=== PATIENT | male | born 1940 | race Caucasian/White ===

== ENCOUNTER 2021-06-03 19:20 | Inpatient (IN) | payer MEDICARE, OTHER ==
[~2021-06-03] VITALS: Ht 172.7 cm; Wt 70.8 kg
[2021-06-03 19:50] LABS: BASOPHILS # (AUTO) 0.1 K/uL (0.0-0.2); BASOPHILS % (AUTO) 0.4 % (0.0-2.0); EOSINOPHILS % (AUTO) 0.1 % (0.0-6.0); HEMATOCRIT 43 % (39-51); LYMPHOCYTES # (AUTO) 1.1 K/uL (0.8-4.8); LYMPHOCYTES % (AUTO) 6.2 % (20.0-44.0); MEAN CORPUSCULAR HGB CONC 32 g/dl (31.0-36.0); MEAN CORPUSCULAR VOLUME 102 fL (80-96); MONOCYTES # (AUTO) 0.7 K/uL (0.1-1.30); MONOCYTES % (AUTO) 4.2 % (2.0-12.0); NEUTROPHILS # (AUTO) 15.3 K/uL (1.8-8.9); NEUTROPHILS % (AUTO) 89.1 % (43.0-81.0); PLATELET COUNT (AUTO) 288 K/uL (150-450); RED BLOOD CELL COUNT(AUTO) 4.26 MIL/uL (4.5-6.0); WHITE BLOOD COUNT (AUTO) 17.2 K/uL (4.3-11.0)
[2021-06-03] MEDS ORDERED: IV NS 0.9% 1,000 ML IV ONE ×2 (20:00→22:30)
--- NOTE | 2021-06-03 20:00 | NUR ---
PATIENT BIBRA70 FROM SNF/ [facility], C/O LOW O2 SAT IN THE 80'S AND LOW BP 80/40. PATIENT A/OX2, NO SOB NOTED, RR EVEN. PATIENT CONNECTED TO PATIENT ADVOCATE AND POX. WILL CONTINUE TO MONITOR.
[2021-06-03 20:02] LABS: CALCIUM, SERUM 9.5 mg/dL (8.5-10.1); CARBON DIOXIDE 24 mmol/L (21-32); CHLORIDE 101 mmol/L (98-107); CREATININE 3.3 mg/dL (0.6-1.3); GLUCOSE 122 mg/dL (74-106); POTASSIUM 4.8 mmol/L (3.5-5.1); SODIUM SERUM 140 mmol/L (136-145); UREA NITROGEN, BLOOD 70 mg/dL (7-18)
--- NOTE | 2021-06-03 20:28 | NUR ---
Hannah barrett in [facility] - 06/03/21 at 2028 by TOMMY PER LAB, NO COVID SAMPLE YET
--- NOTE | 2021-06-03 20:45 | NUR ---
COVID SWAB DONE AND SENT TO LAB
--- NOTE | 2021-06-03 20:54 | NUR ---
urine collected and sent to lab
[2021-06-03] MEDS ORDERED: ONDANSETRON HCL/PF 4 MG/2 ML VIAL IVP PRN (21:00)
[2021-06-03] MEDS ORDERED: MORPHINE SULFATE INJ 2 MG/ML DISP.SYRIN IV PRN (21:00)
[2021-06-03] MEDS ORDERED: ACETAMINOPHEN 325 MG TABLET PO PRN (21:00)
[2021-06-03] MEDS ORDERED: VANCOMYCIN 1.5 GM in IV D5W 500 ML IV ONE (21:00)
[2021-06-03] MEDS ORDERED: hydrALAZINE HCL IV 20 MG VIAL IV PRN (21:00)
[2021-06-03] MEDS ORDERED: Z GUARD REMEDY 2 OZ OINT TP PRN (21:00)
[2021-06-03] MEDS ORDERED: LABETALOL 20 MG/4 ML VIAL IV PRN (21:00)
[2021-06-03 21:09] LABS: BILIRUBIN,URINE MODERATE (NEGATIVE); COLOR,URINE ORANGE (YELLOW); LEUKOCYTE ESTERASE ,URINE Negative (NEGATIVE); NITRITE, URINE Negative (NEGATIVE); PH,URINE 5.5 (5.0-8.0); PROTEIN,URINE 100 mg/dl (NEGATIVE); UGLUCOSE Negative (NEGATIVE)
[2021-06-03 21:43] LABS: CREATININE, URINE 235.7 MG/DL (30.0-125.0)
[2021-06-03 21:46] LABS: BACTERIA,URINE 1+ /HPF (None Seen); RBC,URINE 51-80 /HPF (0-2); SQUAMOUS EPITHELIAL CELL,UR Few /HPF (None Seen)
[2021-06-03] MEDS ORDERED: ALBU8.5H8 IH (21:47)
[2021-06-03 21:50] LABS: THYROID STIMULATING HORMONE 12.115 uIU/mL (0.358-3.74)
[2021-06-03] MEDS ORDERED: BENA40TA8 PO (21:50)
[2021-06-03] MEDS ORDERED: AMLO-213 PO (21:50)
[2021-06-03] MEDS ORDERED: LORA-259 PO (21:50)
[2021-06-03] MEDS ORDERED: CELE200C PO (21:50)
[2021-06-03] MEDS ORDERED: BENZ0.5T43 PO (21:50)
[2021-06-03] MEDS ORDERED: DONE5TAB7 PO (21:50)
[2021-06-03] MEDS: METOPROLOL TARTRATE 25 MG TABLET PO SCH (22:30)
[2021-06-03] MEDS ORDERED: LORAZEPAM 1 MG TABLET PO PRN (22:30)
[2021-06-03] MEDS ORDERED: ALBUTEROL SULFATE INH 18 GM HFA.AER.AD IH PRN (22:30)
--- NOTE | 2021-06-03 22:38 | NUR ---
FREDIS RN WILL CALL BACK
--- NOTE | 2021-06-03 22:43 | NUR ---
REPORT GIVEN TO YANG NULL
[2021-06-03] MEDS ORDERED: CEFEPIME 1 GM in IV D5W 50 ML IV ONE (23:00)
[2021-06-03] MEDS ORDERED: ALBUTEROL FS 2.5 MG/3 ML VIAL.NEB NEB PRN (23:00)
--- NOTE | 2021-06-03 23:05 | NUR ---
PT TRANSFERRED UNDER ACLS
--- NOTE | 2021-06-03 23:30 | NUR ---
RN NOTE RECEIVED AN 80 YEAR OLD MALE FROM ER. REPORT GIVEN BY YANG AQUINO. ARRIVED VIA GURNEY. PATIENT IS AWAKE, VERBALLY RESPONSIVE. AOX1. BREATHING EVEN AND UNLABORED. TOLERATING ROOM AIR WITH SATURATION OF 100 PERCENT. HOB ELEVATED 35 DEGREES. NO SOB NOTED. SKIN WARM AND DRY. NOTED WITH LEFT HAND 24G, RUNNING 1L, NS WIDE OPEN. NO INFILTRATION NOTED. PATIENT DENIES PAIN AT THIS TIME. KEPT CLEAN AND DRY. BED LOW, IN LOCKED POSITION. CALL LIGHT WITHIN REACH.
[2021-06-04] VITALS: BP 86/50
[2021-06-04] MEDS ORDERED: VANCOMYCIN 1 GM VIAL ONE (00:06)
[2021-06-04] MEDS: APIXABAN 5 MG TABLET PO SCH ×3 (00:14→16:35)
--- NOTE | 2021-06-04 00:20 | NUR ---
RN NOTE PATIENT SPITTING OUT MEDICATION, ELIQUIS. EXPLAINED TO PATIENT THE PURPOSE AND RISK OF NOT TAKING ELIQUIS 3X. PATIENT STATES "I DONT WANT TO TAKE THAT". EXPLAINED THREE TIMES. STILL REFUSING. CHARGE NURSE INFORMED. NO BLEEDING AT THIS TIME. CALL LIGHT WITHIN REACH.
[2021-06-04 00:26] LABS: BILIRUBIN,DIRECT 0.9 mg/dL (0.0-0.2); BILIRUBIN,TOTAL 1.8 mg/dL (0.2-1.0)
--- NOTE | 2021-06-04 00:30 | NUR ---
RN NOTE RECEIVED REPORT FROM LAB, KAREN, PATIENTS LACTIC ACID LEVEL 3.3. PATIENT CURRENTLY RUNNING NS BOLUS FROM ER AND VANCOMYCIN 1.5 GM. WILL INFORM MD. WILL CONTINUE TO MONITOR.
[2021-06-04] MEDS ORDERED: CEFEPIME 1 GM VIAL ONE (00:41)
[2021-06-04 00:46] LABS: ALANINE AMINOTRANSFERASE 101 U/L (12-78); ALBUMIN 2.6 g/dL (3.4-5.0); ALKALINE PHOSPHATASE 72 U/L (46-116); ASPARTATE AMINOTRANSFERASE 263 U/L (15-37); BILIRUBIN,TOTAL 1.7 mg/dL (0.2-1.0); CALCIUM, SERUM 8.3 mg/dL (8.5-10.1); CARBON DIOXIDE 22 mmol/L (21-32); CHLORIDE 104 mmol/L (98-107); CREATININE 3.3 mg/dL (0.6-1.3); GLUCOSE 129 mg/dL (74-106); POTASSIUM 5.3 mmol/L (3.5-5.1); SODIUM SERUM 141 mmol/L (136-145); TOTAL PROTEIN, SERUM 6.3 g/dL (6.4-8.2); UREA NITROGEN, BLOOD 74 mg/dL (7-18)
[2021-06-04] MEDS: CEFEPIME 1 GM in IV D5W 50 ML IV SCH (01:51)
[2021-06-04] MEDS: IV NS 0.9% 1,000 ML IV PRN ×2 (02:40→23:08)
[2021-06-04 04:00] VITALS: BP 99/58
[2021-06-04 04:03] LABS: BASOPHILS # (AUTO) 0.1 K/uL (0.0-0.2); BASOPHILS % (AUTO) 0.4 % (0.0-2.0); HEMATOCRIT 36 % (39-51); LYMPHOCYTES # (AUTO) 0.6 K/uL (0.8-4.8); LYMPHOCYTES % (AUTO) 3.3 % (20.0-44.0); MEAN CORPUSCULAR HGB CONC 33 g/dl (31.0-36.0); MEAN CORPUSCULAR VOLUME 101 fL (80-96); MONOCYTES # (AUTO) 0.8 K/uL (0.1-1.30); MONOCYTES % (AUTO) 4.4 % (2.0-12.0); NEUTROPHILS # (AUTO) 16.4 K/uL (1.8-8.9); NEUTROPHILS % (AUTO) 91.9 % (43.0-81.0); PLATELET COUNT (AUTO) 229 K/uL (150-450); RED BLOOD CELL COUNT(AUTO) 3.59 MIL/uL (4.5-6.0); WHITE BLOOD COUNT (AUTO) 17.9 K/uL (4.3-11.0)
[2021-06-04 04:19] LABS: ALANINE AMINOTRANSFERASE 89 U/L (12-78); ALBUMIN 2.3 g/dL (3.4-5.0); ALKALINE PHOSPHATASE 67 U/L (46-116); ASPARTATE AMINOTRANSFERASE 215 U/L (15-37); BILIRUBIN,TOTAL 1.5 mg/dL (0.2-1.0); CALCIUM, SERUM 7.9 mg/dL (8.5-10.1); CARBON DIOXIDE 23 mmol/L (21-32); CHLORIDE 105 mmol/L (98-107); CREATININE 3.1 mg/dL (0.6-1.3); GLUCOSE 178 mg/dL (74-106); MAGNESIUM 2.1 mg/dL (1.8-2.4); PHOSPHORUS 4.9 mg/dL (2.5-4.9); POTASSIUM 5.2 mmol/L (3.5-5.1); SODIUM SERUM 140 mmol/L (136-145); TOTAL PROTEIN, SERUM 5.8 g/dL (6.4-8.2); UREA NITROGEN, BLOOD 72 mg/dL (7-18)
[2021-06-04 06:35] LABS: BAND % (MANUAL) 3 % (0.0-5.0); LYMPHOCYTES % (MANUAL) 4 % (16-48); MONOCYTES % (MANUAL) 4 % (0-11.0); NEUTROPHILS % (MANUAL) 89 (42-76)
--- NOTE | 2021-06-04 07:30 | NUR ---
RN OPENING NOTE RECEIVED PATIENT ASLEEP IN BED, EASY TO AROUSE. PATIENT IS ALERT AND ORIENTED X 1, WITH CONFUSION. NO SOB. BREATHING IS EVEN AND UNLABORED. PT WITH O2 SUPPLEMENTATION 2L VIA NASAL CANNULA SATURATING AT 98%. IV ACCESS LHAND#24 AND LAC#20 RUNNING AT 75MLS/HR. SAFETY MEASURES IN PLACE WITH BED LOCKED AT LOWEST POSITION AND SIDE RAILS UP X2. WILL CONTINUE TO MONITOR PATIENT FOR SOB, DECREASE IN BP OR OXYGENATION.
--- NOTE | 2021-06-04 07:45 | NUR ---
WOUND CARE CONSULT: REVIEWED CHART, NURSING DOCUMENTATION AND PHOTOS WHICH INDICATE WOUNDS PRESENT ON ADMISSION. DR IVY NOTIFIED OF SURGICAL CONSULT REQUEST. RECOMMENDATIONS MADE FOR SKIN PROTECTION. DISCUSSED WITH NURSING STAFF. MD IN AGREEMENT WITH PLAN OF CARE.
[2021-06-04 08:00] VITALS: BP 111/52
[2021-06-04] MEDS: DONEPEZIL 5 MG TABLET PO SCH (08:36)
[2021-06-04] MEDS: BENZTROPINE MESYLATE (1 MG) 1 MG TABLET PO SCH (08:36)
[2021-06-04] MEDS: METOPROLOL TARTRATE 25 MG TABLET PO SCH ×2 (08:43→16:35)
[2021-06-04] MEDS: AMLODIPINE BESYLATE 10 MG TABLET PO SCH (08:43)
[2021-06-04] MEDS ORDERED: IV NS 0.9% 1,000 ML IV ONE (09:00)
--- NOTE | 2021-06-04 11:01 | NUR ---
RN NOTE MADE DR. FARLEY AWARE OF PT REFUSING PO MEDS, INCLUDING ELIQUIS. PER DR. FARLEY, OK TO HOLD. ORDERS READ BACK AND CARRIED OUT.
[2021-06-04 12:00] VITALS: BP 111/52
[2021-06-04 16:00] VITALS: BP 111/52
--- NOTE | 2021-06-04 18:47 | NUR ---
RN CLOSING NOTE PT IN BED, RESTING COMFORTABLY. NO S/SX OF DISTRESS NOTED. NO SOB. BREATHING IS EVEN AND UNLABORED . PT WITH 02 SUPPLEMENTATION VIA NC SP02 SATURATING AT 98%. PT CONTINUED TO REFUSE MEDS MADE AWARE. NO SIGNIFICANT CHANGE THROUGHOUT SHIFT. SAFETY MEASURES MAINTAINED. WILL ENDORSE CONTINUITY OF CARE TO ONCOMING SHIFT.
--- NOTE | 2021-06-04 19:30 | NUR ---
CONTINUITY OF CARE Patient in bed, A/O to self only, confused. Removed NC tubing by himself, Oxygen sat 94% on room air, no c/o sob. IVF infusing. Incontinent, had BM. Turned and repositioned. Fall precaution maintained. Covid PCR test pending result.
--- NOTE | 2021-06-04 21:40 | NUR ---
INCOMPLETE VS TAKEN AT 1999 Patient refused BP check, declined education, patient is confused.
[2021-06-05] MEDS: CEFEPIME 1 GM in IV D5W 50 ML IV SCH ×2 (01:01→22:01)
[2021-06-05 01:11] VITALS: BP 119/64
[2021-06-05 05:21] VITALS: BP 125/81
--- NOTE | 2021-06-05 06:10 | NUR ---
END OF SHIFT REPORT Patient is A/O x1 to self only, confused. Afib controlled in the Tele monitor. Removed NC by himself, Oxygen sat 94% on RA. Incontinent, had BM this shift, voided urine. Turned and repositioned. Applied new Mepilex foam to nola hip. IVF infusing. on IV antibiotic. NPO awaiting swallow eval. Fall precaution maintained. PCR covid test pending result. Will endorse to oncoming RN.
--- NOTE | 2021-06-05 07:25 | NUR ---
RN OPENING NOTE PATIENT RECEIVED AWAKE IN BED, VERBALLY RESPONSIVE. A/O X4. LFA MED LOCK IN PLACE AND PATENT, CONTINUES ON FLUID NS @75 CC/HR RUNNING WELL. PT NOT IN DISTRESS NO SOB NOTED WITH O2 SAT OF 95 IN RA. SAFETY MEASURES FOLLOWED. WILL CONTINUE TO MONITOR.
[2021-06-05 08:00] VITALS: BP 95/45
[2021-06-05] MEDS: METOPROLOL TARTRATE 25 MG TABLET PO SCH ×3 (09:00→16:51)
[2021-06-05] MEDS: AMLODIPINE BESYLATE 10 MG TABLET PO SCH (09:00)
[2021-06-05] MEDS: BENZTROPINE MESYLATE (1 MG) 1 MG TABLET PO SCH (10:25)
[2021-06-05] MEDS: DONEPEZIL 5 MG TABLET PO SCH (10:25)
[2021-06-05] MEDS: APIXABAN 5 MG TABLET PO SCH ×2 (10:26→16:54)
[2021-06-05 12:00] VITALS: BP 108/61
[2021-06-05 16:00] VITALS: BP 105/64
[2021-06-05] MEDS: IV NS 0.9% 1,000 ML IV PRN (17:09)
--- NOTE | 2021-06-05 19:44 | NUR ---
RN OPENING NOTES RECEIVED REPORT OF PATIENT FROM DAY SHIFT NURSE, PATIENT IS A/O X1. PATIENT IS RESTLESS AND AGITATED. PATIENT PULLED ON IV ACCESS, NEW IV ACCESS PUT IN PLACE IN LEFT AC G#20 RUNNING WITH NS AT 75ML/HR. PATIENT WAS PLACED UNDER SOFT BILATERAL WRIST RESTRAINTS. NO SINGS IF CIRCULATORY COMPROMISE. PATIENT IS CURRENTLY ON ROOM AIR, LATEST O2 SAT WAS 98%. PATIENT WAS REPOSITIONED FOR COMFORT MEASURES. ALL SAFETY MEASURES PUT IN PLACE. BED IS AT LOWEST POSITION WITH WHEELS LOCKED IN PLACE, CALL LIGHT IS WITHIN REACH. WILL CONTINUE TO MONITOR FOR ANY CHANGES.
[2021-06-05 20:00] VITALS: BP 131/66
--- NOTE | 2021-06-05 20:00 | NUR ---
RN CLOSING NOTE PATIENT SEEN AWAKE IN BED, VERBALLY RESPONSIVE. A/O X1. PT REMOVED LFA MED LOCK. B2B SALES PROFESSIONAL JACKELYN Condon MADE AWARE, WITH T.O. FOR BILATERAL RESTRAINTS AND MIDLINE INSERTION.PT NOT IN DISTRESS NO SOB NOTED WITH O2 SAT OF 95 IN RA. SAFETY MEASURES FOLLOWED. WILL CONTINUE TO MONITOR. DUE MEDICATIONS GIVEN. MORNING CARE DONE.
[2021-06-06] VITALS: BP 129/56
[2021-06-06 04:00] VITALS: BP 132/53
[2021-06-06 07:39] LABS: BASOPHILS % (AUTO) 0.3 % (0.0-2.0); HEMATOCRIT 34 % (39-51); LYMPHOCYTES # (AUTO) 0.7 K/uL (0.8-4.8); LYMPHOCYTES % (AUTO) 8.8 % (20.0-44.0); MEAN CORPUSCULAR HGB CONC 33 g/dl (31.0-36.0); MEAN CORPUSCULAR VOLUME 105 fL (80-96); MONOCYTES # (AUTO) 0.6 K/uL (0.1-1.30); MONOCYTES % (AUTO) 7.7 % (2.0-12.0); NEUTROPHILS # (AUTO) 6.4 K/uL (1.8-8.9); NEUTROPHILS % (AUTO) 82.2 % (43.0-81.0); PLATELET COUNT (AUTO) 242 K/uL (150-450); WHITE BLOOD COUNT (AUTO) 7.8 K/uL (4.3-11.0)
[2021-06-06 08:00] VITALS: BP 154/83
--- NOTE | 2021-06-06 08:00 | NUR ---
RN Note: Pt received alert awake oriented X1. On RA, no breathing distress noted. No s/s of pain & discomfort noted at this time. Safety measures observed. IV site C/I/D, continue with IV fluids as ordered, tolerating well. Bilateral soft restraints ON. Attempt to release restraints, noted still trying to pull out treatment lines. Continue to asses closely. All needs attended. Continue to monitor.
[2021-06-06 08:06] LABS: ALANINE AMINOTRANSFERASE 87 U/L (12-78); ALBUMIN 2.1 g/dL (3.4-5.0); ALKALINE PHOSPHATASE 57 U/L (46-116); ASPARTATE AMINOTRANSFERASE 155 U/L (15-37); CALCIUM, SERUM 7.7 mg/dL (8.5-10.1); CARBON DIOXIDE 16 mmol/L (21-32); CHLORIDE 115 mmol/L (98-107); CREATININE 1.4 mg/dL (0.6-1.3); GLUCOSE 69 mg/dL (74-106); PHOSPHORUS 2.6 mg/dL (2.5-4.9); POTASSIUM 3.5 mmol/L (3.5-5.1); SODIUM SERUM 147 mmol/L (136-145); TOTAL PROTEIN, SERUM 5.4 g/dL (6.4-8.2); UREA NITROGEN, BLOOD 53 mg/dL (7-18)
[2021-06-06] MEDS: BENZTROPINE MESYLATE (1 MG) 1 MG TABLET PO SCH (08:58)
[2021-06-06] MEDS: AMLODIPINE BESYLATE 10 MG TABLET PO SCH (08:58)
[2021-06-06] MEDS: APIXABAN 5 MG TABLET PO SCH ×2 (08:59→17:59)
[2021-06-06] MEDS: METOPROLOL TARTRATE 25 MG TABLET PO SCH ×2 (08:59→18:00)
[2021-06-06] MEDS: DONEPEZIL 5 MG TABLET PO SCH (08:59)
[2021-06-06] MEDS: IV NS 0.9% 1,000 ML IV PRN (09:16)
[2021-06-06] MEDS: IV 1/2NS 1000 ML 1,000 ML IV PRN ×2 (10:06→23:17)
--- NOTE | 2021-06-06 11:30 | NUR ---
RN note: Informed Brina CYBER SECURITY SPECIALIST regarding poor PO intake, episodes of spitting out food & medication. Continue on bilateral soft restraints. Attempts to pull tubings. Plan for Psych consult.
[2021-06-06 12:00] VITALS: BP 139/67
[2021-06-06] MEDS ORDERED: QUETIAPINE FUMARATE 25 MG TABLET PO SCH (13:00)
--- NOTE | 2021-06-06 13:04 | NUR ---
RN Note: Received call from Dr. Maier, received new orders to discontinue Seroquel & start new Risperidone M 0.5mg PO TID. Continue bilateral soft wrist restraints at this time. Orders noted & carried out.
[2021-06-06] MEDS: risperiDONE-M 0.5 MG TAB.RAPDIS PO SCH ×2 (14:27→18:00)
[2021-06-06 16:00] VITALS: BP 143/74
--- NOTE | 2021-06-06 18:00 | NUR ---
RN Note: No significant changes noted during shift. Pt took Risperdol PO 0.5mg as ordered. No attempts to pull out lines while off restraints. D/C'd bilateral soft wrist restraints. Continue to monitor closely. Report given to PM shift RN for continuity of care.
[2021-06-06 20:00] VITALS: BP 122/68
--- NOTE | 2021-06-06 21:30 | NUR ---
TOOL DESIGNER APPRENTICE PT ATTEMPTED TO GET OUT OF BED STATING HE NEEDS TO GO HOME. UNABLE TO REORIENT PT. BSWR PLACED FOR PT SAFETY.
[2021-06-06] MEDS: CEFEPIME 1 GM in IV D5W 50 ML IV SCH (23:10)
[2021-06-07 04:00] VITALS: BP 143/65
[2021-06-07 08:00] VITALS: BP 100/70
[2021-06-07 08:28] LABS: BASOPHILS % (AUTO) 0.4 % (0.0-2.0); EOSINOPHILS % (AUTO) 1.4 % (0.0-6.0); HEMATOCRIT 33 % (39-51); LYMPHOCYTES # (AUTO) 0.8 K/uL (0.8-4.8); MEAN CORPUSCULAR HGB CONC 33 g/dl (31.0-36.0); MEAN CORPUSCULAR VOLUME 103 fL (80-96); MONOCYTES # (AUTO) 0.5 K/uL (0.1-1.30); MONOCYTES % (AUTO) 7.9 % (2.0-12.0); NEUTROPHILS # (AUTO) 5.5 K/uL (1.8-8.9); NEUTROPHILS % (AUTO) 79.3 % (43.0-81.0); PLATELET COUNT (AUTO) 263 K/uL (150-450); RED BLOOD CELL COUNT(AUTO) 3.24 MIL/uL (4.5-6.0); WHITE BLOOD COUNT (AUTO) 6.9 K/uL (4.3-11.0)
[2021-06-07] MEDS: APIXABAN 5 MG TABLET PO SCH ×2 (08:43→16:39)
[2021-06-07] MEDS: BENZTROPINE MESYLATE (1 MG) 1 MG TABLET PO SCH (08:43)
[2021-06-07] MEDS: DONEPEZIL 5 MG TABLET PO SCH (08:43)
[2021-06-07] MEDS: risperiDONE-M 0.5 MG TAB.RAPDIS PO SCH ×3 (08:43→16:35)
[2021-06-07 08:49] LABS: CALCIUM, SERUM 7.6 mg/dL (8.5-10.1); CREATININE 1.2 mg/dL (0.6-1.3); MAGNESIUM 1.6 mg/dL (1.8-2.4); POTASSIUM 3.6 mmol/L (3.5-5.1)
[2021-06-07] MEDS: METOPROLOL TARTRATE 25 MG TABLET PO SCH ×2 (08:49→16:34)
[2021-06-07] MEDS: AMLODIPINE BESYLATE 10 MG TABLET PO SCH (08:49)
[2021-06-07] MEDS: Magnesium 1GM/D5W 100ML PREMIX 100 ML IV SCH ×2 (10:23→11:25)
[2021-06-07] MEDS: IV D5W 1,000 ML IV PRN (10:29)
[2021-06-07] MEDS ORDERED: POTASSIUM PHOSPHATE MM 7.5 MMOL in IV NS 0.9% 100 ML IV SCH (11:00)
[2021-06-07 16:00] VITALS: BP 133/63
--- NOTE | 2021-06-07 18:46 | NUR ---
RN CLOSING NOTE PT IN BED RESTING COMFORTABLY. NO SOB OR ANY S/SX OF DISTRESS NOTED. NO SIGNIFICANT CHANGES NOTED DURING SHIFT. RESTRAINTS D/C'D WITH NO ATTEMPT TO PULL OUT LINES AT THE TIME. ALL SAFETY MEASURES IMPLEMENTED. CALL LIGHT WITHIN REACH. BED IN LOWEST POSITION WITH SIDERAILS UP X 2. WILL REPORT TO CHANGE MANAGEMENT MANAGER RN FOR CONTINUITY OF CARE.
--- NOTE | 2021-06-07 19:30 | NUR ---
MS RN: RECEIVED PT. ALERT AND AWAKE. ABLE TO FOLLOW SIMPLE COMMANDS. ON ROOM AIR WT NO ACUTE DISTRESS. NO C/O PAIN OR EVIDENCE OF DISCOMFORT. ON D5W AT 75ML/HR WT NO S/S OF IV INFILTRATION. STILL OF BILAT. WRIST RESTRAINTS WT NO EPISODE OF TRYING TO PULL TUBINGS. REPOSITIONED FOR COMFORT. GOOD SKIN CARE RENDERED. HOB AT 35 DEGREES. BED IN LOWEST POSITION AND LOCKED. BED ALARM ON. SIDE RAILS UPX 2. CALL LIGHT WITHIN REACH. WILL CONTINUE TO MONITOR.
[2021-06-07 20:00] VITALS: BP 118/61
--- NOTE | 2021-06-07 22:03 | NUR ---
MS RN: ENDORSED TO YANG HSIEH IN STABLE CONDITION. PICTURES TAKEN EXCEPT LEFT HIP.
--- NOTE | 2021-06-07 22:03 | NUR ---
RN NOTE REPORT RECEIVED BY YANG WILLIAM FOR REESE.
[2021-06-07] MEDS: CEFEPIME 1 GM in IV D5W 50 ML IV SCH (22:59)
--- NOTE | 2021-06-07 23:00 | NUR ---
RN NOTE PT RESTING IN BED COMFORTABLY. PT IS ON ROOM AIR SHOWING NO S/S OF RESP DISTRESS/SOB. D5W RUNNING AT 75ML/HR. PT TOLERATING WELL. PICTURE TAKEN OF LEFT HIP WOUND. COMPARED TO PREVIOUS PICTURES IN CHART, THERE IS NO MORE REDNESS ON LEFT HIP. PICTURE PLACED IN CHART. WILL CONTINUE TO MONITOR AND ASSESS FOR ANY CHANGES DURING SHIFT.
[2021-06-08] MEDS: IV D5W 1,000 ML IV PRN ×2 (02:13→16:32)
[2021-06-08 04:00] VITALS: BP 128/62
--- NOTE | 2021-06-08 07:01 | NUR ---
RN NOTE NO CHANGES IN PT CONDITION DURING SHIFT. PT IS ON ROOM AIR SHOWING NO S/S OF RESP DISTRESS/SOB. BREATHING EVEN AND UNLABORED. PT IS ALERT AND ORIENTED X1. IV ACCESS NOTED ON LEFT UPPER ARM ML #18 AND LEFT AC #20. D5W RUNNING AT 75 ML/HR. PT TOLERATING WELL. ALL DUE MEDS GIVEN ORDERED. PT KEPT CLEAN AND COMFORTABLE. ALL SAFETY MEASURES IMPLEMENTED. WILL ENDORSE TO MORNING SHIFT RN FOR REESE.
--- NOTE | 2021-06-08 07:59 | NUR ---
RN OPENING NOTES: RECEIVED PT. AWAKE, ALERT/ORIENTED X 1 ON ROOM AIR WITH NO ACUTE DISTRESS. DENIES ANY PAIN/DISCOMFORT. ON D5W AT 75ML/HR WT NO S/S OF IV INFILTRATION. REMAINS TO BE OFF BILATERAL WRIST RESTRAINTS WITH NO EPISODE OF TRYING TO PULL TUBINGS. HOB AT 35 DEGREES. BED IN LOWEST POSITION AND LOCKED. BED ALARM ON. SIDE RAILS UPX 2. CALL LIGHT WITHIN REACH. WILL CONTINUE TO MONITOR.
[2021-06-08 08:51] VITALS: BP_SYST 137; BP_SYST 142; BP_DIAS 69; BP_DIAS 73
[2021-06-08] MEDS: AMLODIPINE BESYLATE 10 MG TABLET PO SCH (09:04)
[2021-06-08] MEDS: METOPROLOL TARTRATE 25 MG TABLET PO SCH ×2 (09:04→17:05)
[2021-06-08] MEDS: risperiDONE-M 0.5 MG TAB.RAPDIS PO SCH ×3 (09:05→17:05)
[2021-06-08] MEDS: DONEPEZIL 5 MG TABLET PO SCH (09:05)
[2021-06-08] MEDS: APIXABAN 5 MG TABLET PO SCH ×2 (09:05→17:06)
[2021-06-08] MEDS: BENZTROPINE MESYLATE (1 MG) 1 MG TABLET PO SCH (09:05)
[2021-06-08] MEDS: ENSURE ENLIVE 237 ML LIQUID (VANILLA) PO SCH ×3 (09:45→17:06)
--- NOTE | 2021-06-08 12:00 | NUR ---
RN NOTE PT IS NOT TOLERATING PO INTAKE, TRYING TO FEED HIM BUT HE IS SPITTING OUT THE FOOD WILL CONTINUE TO MONITOR AND TRY AGAIN LATER,
[2021-06-08 16:00] VITALS: BP 120/74
--- NOTE | 2021-06-08 18:30 | NUR ---
RN CLOSING NOTES PT REMAINS IN BED RESTING COMFORTABLY. NO SOB OR ANY S/SX OF DISTRESS NOTED AT THIS TIME. NO SIGNIFICANT CHANGES NOTED DURING SHIFT. RESTRAINTS D/C'D WITH NO ATTEMPT TO PULL OUT LINES AT THE TIME. PT CONTINUES TO HAVE POOR PO INTAKE. IV MIDLINE SENAIT RUNNING WITH D5W @ 75ML/HR. ALL SAFETY MEASURES IMPLEMENTED. CALL LIGHT WITHIN REACH. BED IN LOWEST POSITION WITH SIDERAILS UP X 2. WILL REPORT TO CLINICAL INFORMATICS SPECIALIST RN FOR CONTINUITY OF CARE.
--- NOTE | 2021-06-08 19:44 | NUR ---
RN NOTE RECEIVED PATIENT IN BED, SLEEPINE, AROUSABLE TO NAME AND TOUCH. AOX1. BREATHING EVEN AND UNLABORED. TOLERATING ROOM AIR. NO SOB NOTED. HOB ELEVATED 30 DEGREES. DENIES PAIN AT THIS TIME. NOTED WITH LEFT UPPER ARM MIDLINE AND LEFT AC PERIPHERAL IV 20 G. RUNNING D5W AT 75 ML/HR. NO INFILTRATION NOTED. NO BLEEDING NOTED. BED LOW, IN LOCKED POSITION. CALL LIGHT WITHIN REACH.
[2021-06-08 20:00] VITALS: BP 138/86
--- NOTE | 2021-06-08 23:30 | NUR ---
RN NOTE PATIENT NOTED WITH PERIPHERAL IV PULLED OUT. IV 20G INTACT. NO BLEEDING NOTED. PATIENT IS HARD STICK, WILL ATTEMPT TO REINSERT. Addendum: 06/09/21 at 0002 by PORTER PACHECO RN ADENDUM: PATIENT PULLED OUT LEFT UPPER ARM MIDLINE. CATHETER INTACT. PRESSURE APPLIED ON SITE. NO SIGNIFICANT BLEEDING NOTED. WILL CONTINUE TO MONITOR.
[2021-06-09] MEDS: CEFEPIME 1 GM in IV D5W 50 ML IV SCH (00:03)
--- NOTE | 2021-06-09 00:15 | NUR ---
RN NOTE REINSERTED PERIPHERAL IV 22G ON LEFT WRIST. PATENT WITH GOOD BLOOD RETURN. ONGOIGN IVF D5W AT 75 CC/HR. WILL CONTINUE TO MONITOR.
[2021-06-09 04:00] VITALS: BP 125/62
[2021-06-09] MEDS: IV D5W 1,000 ML IV PRN (05:09)
--- NOTE | 2021-06-09 07:35 | NUR ---
MS RN NOTE PATIENT IN BED, ON RA, NO SOB NOTED AT THIS TIME, WITH SOFT RESTRAIN STILL AT RISK, WILL MONITOR CLOSELY TO REMOVE ALL LINES, LT WRIST HL INTACT ,ON IVF ORDERED, BED IN LOWEST AND LOCKED POSITION
[2021-06-09] MEDS: AMLODIPINE BESYLATE 10 MG TABLET PO SCH (08:36)
[2021-06-09] MEDS: DONEPEZIL 5 MG TABLET PO SCH (08:37)
[2021-06-09] MEDS: BENZTROPINE MESYLATE (1 MG) 1 MG TABLET PO SCH (08:37)
[2021-06-09] MEDS: risperiDONE-M 0.5 MG TAB.RAPDIS PO SCH ×3 (08:37→16:18)
[2021-06-09] MEDS: METOPROLOL TARTRATE 25 MG TABLET PO SCH ×2 (08:37→16:17)
[2021-06-09] MEDS: APIXABAN 5 MG TABLET PO SCH ×2 (08:37→16:17)
[2021-06-09] MEDS: ENSURE ENLIVE 237 ML LIQUID (VANILLA) PO SCH ×3 (08:42→16:18)
[2021-06-09] MEDS ORDERED: Magnesium 1GM/D5W 100ML PREMIX 100 ML IV SCH (10:00)
--- NOTE | 2021-06-09 10:11 | NUR ---
ms rn note st at bedside ok to have puree diet and mid line nurse at bedside inserting mid line
--- NOTE | 2021-06-09 11:00 | NUR ---
m rn note picc nurse at bedside rt upper arm picc line inserted
[2021-06-09 12:00] VITALS: BP 135/70
[2021-06-09 12:03] LABS: CALCIUM, SERUM 6.8 mg/dL (8.5-10.1); POTASSIUM 3.1 mmol/L (3.5-5.1)
--- NOTE | 2021-06-09 12:59 | NUR ---
ms vega note more calm at this time ,restrain is removed will monitor Addendum: 06/09/21 at 1300 by JEROD BRENNAN RN st at bedside spit out food but still able to eat some food , will monitor
[2021-06-09] MEDS ORDERED: POTASSIUM CHLORIDE 20 MEQ TAB.PRT.SR PO ONE (13:00)
[2021-06-09] MEDS: Magnesium 1GM/D5W 100ML PREMIX 100 ML IV SCH ×3 (14:36→16:34)
--- NOTE | 2021-06-09 15:39 | NUR ---
ms rn note report given to shira vega per dr linda atkisn to leave picc line
--- NOTE | 2021-06-09 15:54 | NUR ---
ms rn note spoke with notified that patient will go to snf
[2021-06-09 16:11] VITALS: BP 124/70
[2021-06-09 16:17] VITALS: BP 124/81
--- NOTE | 2021-06-09 16:46 | NUR ---
ms rn note noted patient did not urinate since morning called to dr Lamont atkins to place in and out cath ,order carried out
--- NOTE | 2021-06-09 16:50 | NUR ---
ms rn note straight cath done 500 ml of urine noted keep clean dry , all needs attended
--- NOTE | 2021-06-09 18:03 | NUR ---
ms rn note ambulance arrived, report given, hl on rt wrist removed,no bleeding noted, rt upper arm picc line in paced and flushed well, no belonging at discharge noted ,no sob no c\o any discomfort upon discharge, taken to shelter with stable condition Addendum: 06/09/21 at 1816 by JEROD BRENNAN RN taken by ambulance with stable condition , all discharge instruction given to ambulance personal
== END 2021-06-09 18:12 | DRG 871 ==
LOC: ER 19:26 → TELE1 22:35 → MEDSG1 06-06 17:52
PROVIDERS: ADMIT Internal Medicine
PROC: 05HC33Z Insertion of Infusion Device into Left Basilic Vein, Percutaneous Approach (ICD-10-PCS; principal; 2021-06-05)
PROC: 05HB33Z Insertion of Infusion Device into Right Basilic Vein, Percutaneous Approach (ICD-10-PCS; 2021-06-09)
DX: A41.9 Sepsis, unspecified organism (principal); N17.0 Acute kidney failure with tubular necrosis; G93.41 Metabolic encephalopathy; R65.21 Severe sepsis with septic shock; G92.8 Other toxic encephalopathy; I21.A1 Myocardial infarction type 2; J69.0 Pneumonitis due to inhalation of food and vomit; J15.9 Unspecified bacterial pneumonia; N39.0 Urinary tract infection, site not specified; J44.0 Chronic obstructive pulmonary disease with (acute) lower respiratory infection; E87.2 Acidosis; E87.1 Hypo-osmolality and hyponatremia; E87.0 Hyperosmolality and hypernatremia; F05 Delirium due to known physiological condition; I10 Essential (primary) hypertension; F03.90 Unspecified dementia, unspecified severity, without behavioral disturbance, psychotic disturbance, mood disturbance, and anxiety; Z20.822 Contact with and (suspected) exposure to COVID-19; K21.9 Gastro-esophageal reflux disease without esophagitis; F32.A Depression, unspecified; I48.91 Unspecified atrial fibrillation; R94.6 Abnormal results of thyroid function studies; B96.89 Other specified bacterial agents as the cause of diseases classified elsewhere; I12.9 Hypertensive chronic kidney disease with stage 1 through stage 4 chronic kidney disease, or unspecified chronic kidney disease; N18.9 Chronic kidney disease, unspecified; R74.01 Elevation of levels of liver transaminase levels; E87.5 Hyperkalemia; S91.001A Unspecified open wound, right ankle, initial encounter; X58.XXXA Exposure to other specified factors, initial encounter; Y92.9 Unspecified place or not applicable; M62.562 Muscle wasting and atrophy, not elsewhere classified, left lower leg; M62.561 Muscle wasting and atrophy, not elsewhere classified, right lower leg; L89.226 Pressure-induced deep tissue damage of left hip; L89.216 Pressure-induced deep tissue damage of right hip; F25.0 Schizoaffective disorder, bipolar type; E83.42 Hypomagnesemia; E83.39 Other disorders of phosphorus metabolism; R09.02 Hypoxemia
CPT/HCPCS: 36415; 71045-TC; 76700-TC; 80048-TC; 80053-TC; 81001; 82247-TC; 82248-TC; 82570-TC; 83605-TC; 83735-TC; 84100-TC; 84300-TC; 84439-TC; 84443-TC; 84481; 84484-TC; 85025-TC; 87040-TC; 87081-TC; 87086-TC; 92526; 92611-TC; 93307-TC; 93970-TC; C9803; G0378; J0692; J2270; J3370; J3475; J3490; J7030; J7050; J7060; J7070; U0003

== ENCOUNTER 2021-06-15 13:48 | Inpatient (IN) | payer MEDICARE, OTHER ==
[~2021-06-15] VITALS: Ht 177.8 cm; Wt 70.8 kg
[~2021-06-15 13:48] MED LIST: ALBU8.5H8 IH; AMLO-213 PO; BENA40TA8 PO; BENZ0.5T43 PO; CELE200C PO; DONE5TAB7 PO; LORA-259 PO
--- NOTE | 2021-06-15 14:01 | NUR ---
BLOOD SUGAR 86, MD AWARE
--- NOTE | 2021-06-15 14:05 | NUR ---
The patient is [facility] for poor PO intake and possible peg placement. The patient is alert and oriented to his name, verbally responsive. Denies pain. In room air and denies SOB. Respiration regular and unlabored. Attached to to the monitor. Warm blanket provided for comfort. Will continue to monitor the patient.
[2021-06-15] MEDS ORDERED: LIDOCAINE 2% JEL UROJET 10 ML MM ONE ×2 (14:30→14:40)
--- NOTE | 2021-06-15 14:31 | NUR ---
MOVE SHEET SUBMITTED
[2021-06-15 14:36] LABS: BASOPHILS # (AUTO) 0.1 K/uL (0.0-0.2); BASOPHILS % (AUTO) 0.8 % (0.0-2.0); EOSINOPHILS % (AUTO) 1.3 % (0.0-6.0); HEMATOCRIT 34 % (39-51); HEMOGLOBIN 11.2 g/dL (13.5-17.5); LYMPHOCYTES % (AUTO) 13.8 % (20.0-44.0); MEAN CORPUSCULAR HGB CONC 33 g/dl (31.0-36.0); MEAN CORPUSCULAR VOLUME 101 fL (80-96); MONOCYTES # (AUTO) 0.5 K/uL (0.1-1.30); MONOCYTES % (AUTO) 6.5 % (2.0-12.0); NEUTROPHILS # (AUTO) 5.9 K/uL (1.8-8.9); NEUTROPHILS % (AUTO) 77.6 % (43.0-81.0); PLATELET COUNT (AUTO) 254 K/uL (150-450); RED BLOOD CELL COUNT(AUTO) 3.32 MIL/uL (4.5-6.0); WHITE BLOOD COUNT (AUTO) 7.6 K/uL (4.3-11.0)
[2021-06-15 15:03] LABS: BILIRUBIN,URINE MODERATE (NEGATIVE); COLOR,URINE DARK YELLOW (YELLOW); LEUKOCYTE ESTERASE ,URINE NEGATIVE (NEGATIVE); NITRITE, URINE NEGATIVE (NEGATIVE); PROTEIN,URINE 100 mg/dl (NEGATIVE); UGLUCOSE NEGATIVE (NEGATIVE)
--- NOTE | 2021-06-15 15:03 | NUR ---
COVID SWAB DONE AND SENT TO LAB
--- NOTE | 2021-06-15 15:03 | NUR ---
URINE COLLECTED AND SENT TO LAB
[2021-06-15 15:11] LABS: BACTERIA,URINE Rare /HPF (None Seen)
[2021-06-15 15:15] LABS: CALCIUM, SERUM 8.5 mg/dL (8.5-10.1); CARBON DIOXIDE 24 mmol/L (21-32); CHLORIDE 110 mmol/L (98-107); CREATININE 1.2 mg/dL (0.6-1.3); GLUCOSE 95 mg/dL (74-106); POTASSIUM 3.7 mmol/L (3.5-5.1); SODIUM SERUM 145 mmol/L (136-145); UREA NITROGEN, BLOOD 22 mg/dL (7-18)
[2021-06-15 15:20] LABS: ALANINE AMINOTRANSFERASE 52 U/L (12-78); ALBUMIN 2.4 g/dL (3.4-5.0); ALKALINE PHOSPHATASE 57 U/L (46-116); ASPARTATE AMINOTRANSFERASE 61 U/L (15-37); BILIRUBIN,DIRECT 0.3 mg/dL (0.0-0.2); BILIRUBIN,TOTAL 0.7 mg/dL (0.2-1.0); TOTAL PROTEIN, SERUM 5.7 g/dL (6.4-8.2)
--- NOTE | 2021-06-15 17:23 | NUR ---
GOT BED 105
[2021-06-15] MEDS ORDERED: MAGNESIUM HYDROXIDE 30 ML UDC PO PRN (17:30)
[2021-06-15] MEDS ORDERED: ACETAMINOPHEN 325 MG TABLET PO PRN (17:30)
[2021-06-15] MEDS ORDERED: ONDANSETRON HCL/PF 4 MG/2 ML VIAL IVP PRN (17:30)
[2021-06-15] MEDS ORDERED: MAG HYDROX/AL HYDROX/SIMETH 30 ML UDC PO PRN (17:30)
[2021-06-15] MEDS ORDERED: Z GUARD REMEDY 2 OZ OINT TP PRN (17:30)
--- NOTE | 2021-06-15 17:34 | NUR ---
REPORT GIVEN TO NURSE STARKEY FOR REESE
[2021-06-15] MEDS ORDERED: IV NS 0.9% 500 ML BAG IV ONE (18:00)
--- NOTE | 2021-06-15 18:55 | NUR ---
THE PATIENT IS TRANSFERED TO [facility] IN STABLE CONDITION AND PER ACLS POLICY.
--- NOTE | 2021-06-15 19:10 | NUR ---
SHOE STAINER NOTE ADMIT 80 YEAR OLD MALE FROM ER TO ROOM 105 ON MED SURG MONITORING,PATIENT IS ALERT ORIENTED X1 CONFUSED,WITH ADMITTING DIAGNOSIS FAILURE TO THRIVE, CRUISING,ANXIOUS.WITH SITTER,ON ROOM AIR O2:100%,IV SITE IS ON RIGHT AC #20 INTACT PATENT,BILATERAL LOWER AND UPPER EXTREMITIES EDEMA,SAFETY MEASURE IMPLEMENT BED IN LOW POSITION AND LOCKED CONTINUE TO MONITOR.
[2021-06-15] MEDS: IV NS 0.9% 1,000 ML IV PRN (19:42)
[2021-06-15 20:53] VITALS: BP 140/79
[2021-06-15 22:00] VITALS: BP 135/69
[2021-06-16] MEDS: LORAZEPAM 1 MG TABLET PO PRN ×2 (00:50→21:44)
--- NOTE | 2021-06-16 00:50 | NUR ---
RN NOTE ATIVAN 1MG PRN GIVEN FOR AGITATION,CONTINUE TO MONITOR.
[2021-06-16 06:45] LABS: BASOPHILS # (AUTO) 0.1 K/uL (0.0-0.2); BASOPHILS % (AUTO) 0.7 % (0.0-2.0); EOSINOPHILS % (AUTO) 1.4 % (0.0-6.0); HEMATOCRIT 29 % (39-51); HEMOGLOBIN 9.9 g/dL (13.5-17.5); LYMPHOCYTES # (AUTO) 1.1 K/uL (0.8-4.8); LYMPHOCYTES % (AUTO) 14.3 % (20.0-44.0); MEAN CORPUSCULAR HGB CONC 35 g/dl (31.0-36.0); MEAN CORPUSCULAR VOLUME 99 fL (80-96); MONOCYTES # (AUTO) 0.6 K/uL (0.1-1.30); MONOCYTES % (AUTO) 7.3 % (2.0-12.0); NEUTROPHILS # (AUTO) 5.8 K/uL (1.8-8.9); NEUTROPHILS % (AUTO) 76.3 % (43.0-81.0); PLATELET COUNT (AUTO) 230 K/uL (150-450); RED BLOOD CELL COUNT(AUTO) 2.87 MIL/uL (4.5-6.0); WHITE BLOOD COUNT (AUTO) 7.6 K/uL (4.3-11.0)
--- NOTE | 2021-06-16 06:59 | NUR ---
RN NOTE PATIENT REMAINS ALERT ORIENTED X1 CONFUSED ON ROOM AIR NO SOB NOT ACUTE DISTRESS NOTED KEPT PATIENT CLEAN AND DRY ALL THE TIME,IV SITE IS ON RIGHT FOREARM AND RIGHT UPPER ARM MIDLINE NS 75CC/HR RUNNING HEAD OF THE BED ELEVATED,ALL DUE MEDS GIVEN MD ORDERED ENDORSE NEXT COMING SHIFT FOR CONTINUATION OF CARE.
--- NOTE | 2021-06-16 07:09 | NUR ---
RN OPENING NOTE RECEIVE REPORT FROM REGIONAL EXTENSION SERVICE SPECIALIST NURSE. PATIENT IN STABLE CONDITION WITH NO SIGN OF DISTRESS. PATIENT HAD A SITTER DURING REGIONAL EXTENSION SERVICE SPECIALIST. WILL FOLLOW UP WITH SITTER AVAILABILITY DURING DAY SHIFT. PROPER ISOLATION PRECAUTION IN PLACE. ALL SAFETY MEASURE IN PLACE. BED ON LOWEST POSITION WITH HOB ELEVATED. CALL LIGHT WITHIN REACH. WILL CONTINUE TO MONITOR.
[2021-06-16] MEDS ORDERED: NA P133E RC (08:13)
[2021-06-16] MEDS ORDERED: CRAN425C6 PO (08:13)
[2021-06-16] MEDS ORDERED: METO25TA20 PO (08:13)
[2021-06-16] MEDS ORDERED: DOCU-141 PO (08:13)
[2021-06-16] MEDS ORDERED: BISA10SU11 RC (08:13)
[2021-06-16] MEDS ORDERED: MIRT-90 PO (08:13)
[2021-06-16] MEDS ORDERED: MAGN400O6 PO (08:13)
[2021-06-16] MEDS ORDERED: ACET-868 PO (08:13)
[2021-06-16] MEDS ORDERED: RISP0.5T74 PO (08:13)
[2021-06-16] MEDS ORDERED: APIX2.5T PO (08:13)
[2021-06-16 08:29] LABS: CALCIUM, SERUM 8.1 mg/dL (8.5-10.1); CREATININE 1.1 mg/dL (0.6-1.3); PHOSPHORUS 2.5 mg/dL (2.5-4.9); POTASSIUM 3.5 mmol/L (3.5-5.1)
[2021-06-16 08:50] LABS: MAGNESIUM 1.2 mg/dL (1.8-2.4)
[2021-06-16] MEDS: AMLODIPINE BESYLATE 10 MG TABLET PO SCH (09:02)
[2021-06-16] MEDS: DONEPEZIL 5 MG TABLET PO SCH (09:03)
[2021-06-16] MEDS ORDERED: ACETAMINOPHEN 325 MG TABLET PO PRN (09:30)
[2021-06-16] MEDS ORDERED: MAGNESIUM HYDROXIDE 30 ML UDC PO PRN (09:30)
[2021-06-16] MEDS ORDERED: NA PHOS,M-B/NA PHOS,DI-BA 1 EA ENEMA RC PRN (09:30)
[2021-06-16] MEDS ORDERED: ALBUTEROL SULFATE INH 18 GM HFA.AER.AD IH PRN (09:30)
[2021-06-16] MEDS ORDERED: BISACODYL SUPP (10 MG) 10 MG/SUPP.RECT SUPP.RECT RC PRN (09:30)
[2021-06-16] MEDS: MAGNESIUM OXIDE 400 MG TABLET PO SCH ×2 (09:48→10:11)
[2021-06-16 10:00] VITALS: BP 154/76
[2021-06-16] MEDS ORDERED: ANESTHESIA TRAY IN PYXIS 1 EA TRAY MC ONE (11:13)
--- NOTE | 2021-06-16 11:39 | NUR ---
RN NOTE SURGERY TEAM PICKED UP PATIENT FOR PEG PROCEDURE. PATIENT IN STABLE CONDITION AT TIME TO TRANSFER WITH NO SIGN OF DISTRESS. PREPROCEDURE CHECK LIST DONE AND VERIFIED WITH OR NURSE. ALL CONSENT SIGNED AND VERIFIED WITH OR NURSE.
[2021-06-16] MEDS ORDERED: Magnesium 1GM/D5W 100ML PREMIX 100 ML IV SCH (12:30)
[2021-06-16] MEDS: ENSURE ENLIVE 237 ML LIQUID (VANILLA) PO SCH ×2 (13:00→17:00)
[2021-06-16] MEDS: risperiDONE-M 0.5 MG TAB.RAPDIS PO SCH ×2 (13:54→16:30)
[2021-06-16] MEDS: IV NS 0.9% 1,000 ML IV PRN (14:57)
[2021-06-16] MEDS: METOPROLOL TARTRATE 25 MG TABLET PO SCH (16:30)
[2021-06-16] MEDS ORDERED: Medication Not On Formulary EA (Cranberry Extract (Cranberry) 850 MG) PO SCH (17:00)
[2021-06-16] MEDS ORDERED: DOCUSATE SODIUM 100 MG CAPSULE PO SCH (18:00)
--- NOTE | 2021-06-16 18:33 | NUR ---
RN CLOSING NOTE PATIENT REMAIN IN STABLE CONDITION THROUGH OUT SHIFT WITH NO SIGN OF DISTRESS. TOOK ALL MEDICATION CRUSH WITH APPLE SAUCE. REMAIN ON ROOM AIR WITH O2 SAT 97% AND ABOVE. DRESSING ON ALL WOUNDS WAS CHANGED. PATIENT REMAIN ON BED REST. RAPID COVID TESTING WAS DONE AND CAME BACK NEGATIVE. PEG TUBE WAS PLACED. GOT TELEPHONE CONSENT FROM SON. VITAL SIGNS WNL. DIETARY CONSULT IN PLACE. ORDER TO START FEEDING TOMORROW AM. PROPER ISOLATION PRECAUTION IN PLACE. BED ON LOWEST POSITION WITH HOB ELEVATED WITH 3 SIDE RAIL UP. CALL LIGHT WITHIN REACH. WILL CONTINUE TO MONITOR AND GIVE REPORT TO COLLECTIONS REP NURSE.
--- NOTE | 2021-06-16 19:30 | NUR ---
RN OPENING NOTES RECEIVED PATIENT ON BED, ALERT, AWAKE AND VERBALLY RESPONSIVE, RESPIRATORY EVEN AND UNLABORED, ON ROOM AIR, NO SOB NOTED, DENIES PAIN, NO S/S OF DISTRESS NOTED, REMAIN AFEBRILE. PT. NOTED WITH ELVIA MIDLINE PATENT, INTACT AND FLUSH WITH NS, NO INFILTRATION NOTED AT SITE. HAS AN IV FLUID OF NS RUNNING AT 75CC/HR TOLERATED WELL. S/P PEG TUBE INSERTION, NO BLEEDING NOTED, DRESSING CHANGED. HOB KEPT ELEVATED, ABDOMINAL BINDER AT ALL TIMES. BED IN LOWEST POSITION, LOCKED, BED ALARM ARMED. ALL NEEDS ATTENDED. CALL LIGHT WITH IN REACH.
[2021-06-16 20:00] VITALS: BP 136/84
--- NOTE | 2021-06-16 21:45 | NUR ---
RN NOTES ATIVAN 1MG PRN GIVEN FOR AGITATION,CONTINUE TO MONITOR
[2021-06-16] MEDS ORDERED: MIRTAZAPINE 15 MG TABLET PO SCH (22:00)
[2021-06-17 04:00] VITALS: BP 131/68
[2021-06-17] MEDS: IV NS 0.9% 1,000 ML IV PRN (04:13)
[2021-06-17 05:56] LABS: BASOPHILS % (AUTO) 0.2 % (0.0-2.0); EOSINOPHILS % (AUTO) 0.3 % (0.0-6.0); HEMATOCRIT 27 % (39-51); HEMOGLOBIN 9.6 g/dL (13.5-17.5); LYMPHOCYTES # (AUTO) 1.1 K/uL (0.8-4.8); LYMPHOCYTES % (AUTO) 7.2 % (20.0-44.0); MEAN CORPUSCULAR HGB CONC 35 g/dl (31.0-36.0); MEAN CORPUSCULAR VOLUME 99 fL (80-96); MONOCYTES # (AUTO) 0.6 K/uL (0.1-1.30); MONOCYTES % (AUTO) 4.1 % (2.0-12.0); NEUTROPHILS % (AUTO) 88.2 % (43.0-81.0); PLATELET COUNT (AUTO) 186 K/uL (150-450); RED BLOOD CELL COUNT(AUTO) 2.74 MIL/uL (4.5-6.0); WHITE BLOOD COUNT (AUTO) 14.8 K/uL (4.3-11.0)
--- NOTE | 2021-06-17 06:28 | NUR ---
RN CLOSING NOTES PATIENT REMAIN STABLE THROUGH OUT THE SHIFT, RESPIRATORY EVEN AND UNLABORED, ON ROOM AIR, O2SAT AT 99%, NO SOB NOTED, DENIES PAIN, NO S/S OF DISTRESS NOTED, REMAIN AFEBRILE. PT. NOTED WITH ELVIA MIDLINE PATENT, INTACT AND FLUSH WITH NS, NO INFILTRATION NOTED AT SITE. HAS AN IV FLUID OF NS RUNNING AT 75CC/HR TOLERATED WELL. S/P PEG TUBE INSERTION, NO BLEEDING NOTED, DRESSING CHANGED. HOB KEPT ELEVATED, ABDOMINAL BINDER AT ALL TIMES. BED IN LOWEST POSITION, LOCKED, BED ALARM ARMED. ALL NEEDS ATTENDED. CALL LIGHT WITH IN REACH.
[2021-06-17 07:09] LABS: CREATININE 0.9 mg/dL (0.6-1.3); PHOSPHORUS 2.7 mg/dL (2.5-4.9); POTASSIUM 3.6 mmol/L (3.5-5.1)
[2021-06-17 07:27] LABS: MAGNESIUM 1.1 mg/dL (1.8-2.4)
--- NOTE | 2021-06-17 07:30 | NUR ---
RN NOTES PATIENT RECEIVED STABLE CONDITION, RESPIRATORY EVEN AND UNLABORED, ON ROOM AIR, O2SAT AT 99%, NO SOB NOTED, NO S/S OF DISTRESS NOTED. PT. NOTED WITH ELVIA MIDLINE PATENT, INTACT AND FLUSH WITH NS, NO INFILTRATION NOTED AT SITE. HAS AN IV FLUID OF NS RUNNING AT 75CC/HR TOLERATED WELL. S/P PEG TUBE INSERTION HOB KEPT ELEVATED, ABDOMINAL BINDER AT ALL TIMES. BED IN LOWEST POSITION, LOCKED, BED ALARM ARMED. WILL CONTINUE ASSESS, MONITOR AND REESE
--- NOTE | 2021-06-17 07:30 | NUR ---
RN NOTES CALL MD TORRES REGARDING LOW MG 1.1 AT 7:30.
[2021-06-17 08:00] VITALS: BP 128/66
[2021-06-17] MEDS ORDERED: BENZTROPINE MESYLATE (1 MG) 1 MG TABLET PO SCH (09:00)
[2021-06-17] MEDS: risperiDONE-M 0.5 MG TAB.RAPDIS PO SCH ×2 (09:03→12:22)
[2021-06-17] MEDS: METOPROLOL TARTRATE 25 MG TABLET PO SCH (09:03)
[2021-06-17] MEDS: DONEPEZIL 5 MG TABLET PO SCH (09:03)
[2021-06-17 09:04] VITALS: BP 128/66
[2021-06-17] MEDS: AMLODIPINE BESYLATE 10 MG TABLET PO SCH (09:04)
[2021-06-17] MEDS ORDERED: Magnesium 1GM/D5W 100ML PREMIX PIGGYBACK IV ONE (10:00)
[2021-06-17] MEDS ORDERED: GLUCERNA 1.2 1,000 ML BOTTLE NG PRN (10:00)
[2021-06-17] MEDS ORDERED: GLUCERNA 1.2 1,000 ML BOTTLE PEG SCH (10:00)
[2021-06-17] MEDS: Magnesium 1GM/D5W 100ML PREMIX 100 ML IV SCH ×2 (10:09→11:28)
--- NOTE | 2021-06-17 10:30 | NUR ---
TALK TO THE PT'S AND REPORT THE PT'S DISCHARGE TO HER.
[2021-06-17] MEDS ORDERED: IV 1/2NS 1000 ML 1,000 ML IV ONE (12:30)
== END 2021-06-17 14:13 | DRG 640 ==
LOC: ER 13:51 → TELE1 18:47 → MEDSG1 23:59
PROVIDERS: ADMIT Internal Medicine; ATTEND Internal Medicine
PROC: 05H933Z Insertion of Infusion Device into Right Brachial Vein, Percutaneous Approach (ICD-10-PCS; 2021-06-15)
PROC: 0DH63UZ Insertion of Feeding Device into Stomach, Percutaneous Approach (ICD-10-PCS; principal; 2021-06-16)
DX: R62.7 Adult failure to thrive (principal); E43 Unspecified severe protein-calorie malnutrition; N17.0 Acute kidney failure with tubular necrosis; G93.41 Metabolic encephalopathy; E87.0 Hyperosmolality and hypernatremia; Z20.822 Contact with and (suspected) exposure to COVID-19; E86.0 Dehydration; I10 Essential (primary) hypertension; E11.9 Type 2 diabetes mellitus without complications; I48.91 Unspecified atrial fibrillation; F03.90 Unspecified dementia, unspecified severity, without behavioral disturbance, psychotic disturbance, mood disturbance, and anxiety; M19.90 Unspecified osteoarthritis, unspecified site; J44.9 Chronic obstructive pulmonary disease, unspecified; F25.9 Schizoaffective disorder, unspecified; F32.9 Major depressive disorder, single episode, unspecified; Z79.51 Long term (current) use of inhaled steroids; Z79.899 Other long term (current) drug therapy; Z79.01 Long term (current) use of anticoagulants; I25.2 Old myocardial infarction; K44.9 Diaphragmatic hernia without obstruction or gangrene
CPT/HCPCS: 36415; 43246; 71045-TC; 80048-TC; 80076-TC; 81001; 82962-TC; 83605-TC; 83735-TC; 84100-TC; 84484-TC; 85025-TC; 85730-TC; 87040-TC; 87081-TC; 87086-TC; 92526; 92611-TC; A4217; G0378; J2704; J3475; J3490; J7030; J7040; U0003

== ENCOUNTER 2021-06-18 06:13 | Emergency (ER) | payer MEDICARE ==
[~2021-06-18] VITALS: Ht 177.8 cm; Wt 73.5 kg
[~2021-06-18 06:13] MED LIST changes: +ACET-868 PO; +APIX2.5T PO; -BENA40TA8 PO; +BISA10SU11 RC; -CELE200C PO; +CRAN425C6 PO; +DOCU-141 PO; +MAGN400O6 PO; +METO25TA20 PO; +MIRT-90 PO; +NA P133E RC; +RISP0.5T74 PO
--- NOTE | 2021-06-18 06:20 | NUR ---
BIBPA. PULLED OUT GT 20FR BY PT. F/C 18FR INPLACE. PT BREATHING EVEN AND UNLABORED PLACED ON MONITOR AND ALL V/S STABLE.
[2021-06-18] MEDS ORDERED: DIATR MEGLU/DIATRIZOATE SODIUM 30 ML BOTTLE (GASTROGRAPHIN) ONE (06:39)
--- NOTE | 2021-06-18 06:47 | NUR ---
RAD AT BEDSIDE
--- NOTE | 2021-06-18 07:53 | NUR ---
[facility] CALLED TO TRANSPORT PT BACK ETA 90 MINS PER ANGE.
--- NOTE | 2021-06-18 10:15 | NUR ---
REPORT GIVEN TO AMBULANCE STAFF
--- NOTE | 2021-06-18 10:15 | NUR ---
REPORT GIVEN TO VENKAT FROM THE FACILITY.
--- NOTE | 2021-06-18 10:16 | NUR ---
Patient discharged in stable condition. Written and verbal after care instructions given. Report givent o receicing nurse.
[2021-06-18 10:17] VITALS: BP 128/76
== END 2021-06-18 10:17 ==
LOC: ER 06:15
DX: K94.23 Gastrostomy malfunction (principal); J45.909 Unspecified asthma, uncomplicated
CPT/HCPCS: 43762; 74018; 99284; Q9963